=== PATIENT | male | born 1970 | race Caucasian/White ===

== ENCOUNTER 2018-06-21 07:39 | Emergency (ER) | payer MEDICAID, SELFPAY ==
[2018-06-21 07:48] VITALS: BP 156/92; PULSE 74; RESP 15; TEMP 36.4; O2SAT 98
[2018-06-21] MEDS: Ondansetron O.D.T. 4 MG TABEF PO (08:12)
[2018-06-21 08:30] LABS: Abs Immature Grans 0.04 k/cumm (0.0-0.09); Absolute Basophil Count 0.04 k/cumm (0.0-0.2); Absolute Eosinophil Count 0.22 k/cumm (0.0-0.7); Absolute Monocyte Count 0.61 k/cumm (0.11-0.7); Absolute Neutrophil Count 8.88 k/cumm (1.2-6.7); Basophils % 0.3; Eosinophils % 1.8; HCT 44.1 % (40.0-50.0); HGB 15.1 g/dL (13.5-17.5); Immature Grans % 0.3; Lymphocytes % 18.4; Mean Corp. HGB Concentration 34.2 g/dL (32.0-36.0); Mean Corpuscular Hemoglobin 31.9 pg (27.0-33.0); Mean Platelet Volume 9.8 fL (8.0-11.0); Monocytes % 5.1; Neutrophils % 74.1; Platelet Count 264 x1000/uL (130-400); RBC 4.74 m/cumm (4.50-6.00); RBC Distribution Width 12.9 % (11.8-14.1); White Blood Cell Count 11.98 k/cumm (4.4-10.8)
--- NOTE | 2018-06-21 08:31 | W.ED.GENAD ---
Discharge Plan Disposition Patient Disposition: HOME Discharge Details Chief Complaint: Nausea/Vomit/Diar Clinical Impression: Nausea and vomiting Primary Care Provider: [place],Local ED Provider: Ole Ibarra Home Meds and New Rx's Prescriptions: New ondansetron 4 mg tablet,disintegrating 4 mg PO BID PRN PRN (Reason: vomiting) 5 Days Qty: 10 RF: 0 Continued Humulin R Regular U-100 Insuln 100 unit/mL Solution 20 unit SUBCUT BID RF: 0 topiramate [Topamax] 100 mg Tablet 100 mg PO BID RF: 0 duloxetine [Cymbalta] 30 mg Capsule,Delayed Release(Dr/Ec) 30 mg PO DAILY RF: 0 atorvastatin 40 mg Tablet 40 mg PO QPM RF: 0 ProAir HFA 90 mcg/actuation Hfa Aerosol Inhaler 2 puff INHALATION QID PRNRF: 0 Januvia 25 mg Tablet 25 mg PO DAILY Qty: 30 RF: 0 Discharge Instructions Instructions: Acute Nausea and Vomiting (ED) Additional Instructions: Please take your medication as prescribed. Please contact your primary care physician to arrange follow-up. Return to the ER for any worsening or new concerning symptoms. Stand Alone Forms: Work Release Medical Decision Making 8:00 --47-year-old male with history of COPD, insulin-dependent diabetes, here with nausea and vomiting for the past 2 days. No abdominal pain. Afebrile. Abdomen nontender, not rigid, no peritoneal findings. He does seem to have some hepatomegaly. Patient does not consume heavy amounts of alcohol. Kdwbs-my-btsc blood sugar elevated at 170. Patient notes he did eat prior to arrival. Plan to check screening labs including CBC, chemistry and LFTs. Patient administered Zofran ODT. --Labs reviewed and nondiagnostic. No anion gap. Care management is seing the patient to help arrange outpatient follow-up. Patient will need follow-up fairly soon for medication prescriptions. I will prescribe his Januvia which he is run out of. HPI General Mode of arrival: ambulatory. Date/Time Provider Initiated Documentation: 06/21/18 08:02. Limitations to Documentation: no limitations. Information obtained by: patient. HPI Narrative: 47-year-old male presents with chief complaint of vomiting. Patient notes nausea and vomiting for the past 2 days. Symptoms are moderate. No modifiers. Positive sick contacts at work. No associated abdominal pain. No chest pain. No fevers. Patient is new to the area and recently moved from [place] - does not yet have a primary care physician. Related Data Home Medications Medication Instructions Recorded Confirmed Humulin R Regular U-100 Insuln 20 unit SUBCUT BID 06/21/18 06/21/18 Januvia 25 mg PO DAILY #30 tab 06/21/18 ProAir HFA 2 puff INHALATION QID PRN 06/21/18 06/21/18 atorvastatin 40 mg PO QPM 06/21/18 06/21/18 duloxetine [Cymbalta] 30 mg PO DAILY 06/21/18 06/21/18 ondansetron 4 mg PO BID PRN PRN 5 Days #10 tab 06/21/18 topiramate [Topamax] 100 mg PO BID 06/21/18 06/21/18 Previous Rx's Medication Instructions Recorded Januvia 25 mg PO DAILY #30 tab 06/21/18 ondansetron 4 mg PO BID PRN PRN 5 Days #10 tab 06/21/18 Allergies Allergy/AdvReac Type Severity Reaction Status Date / Time nickel Allergy Skin Rash Unverified 06/21/18 07:44 garlic AdvReac Intermediate Nausea Unverified 06/21/18 07:44 General Stated Complaint: Nausea/Vomit/Diar ELISA: 3 Review of Systems Review of Systems All systems reviewed & are unremarkable except as noted in HPI and below Constitutional Denies fever(s) Gastrointestinal Denies melena, Denies hematochezia, Denies diarrhea, Reports nausea, Reports vomiting and Denies hematemesis [facility] Medical History COPD (chronic obstructive pulmonary disease) (Chronic) IDDM (insulin dependent diabetes mellitus) (Chronic) Social History Smoking/Tobacco Use Status: Current every day Exam Const General: cooperative and no acute distress HENMT Head: normocephalic and atraumatic Mouth: moist mucous membranes Eyes Conjunctivae: normal conjunctivae Sclera: normal sclerae EOM: EOM intact bilaterally Neck Neck: trachea midline and supple Resp Auscultation: clear to auscultation bilaterally, no rales, no rhonchi and no wheezes Cardio Jugular venous pressure: no JVD Rate: regular rate and not tachycardic Rhythm: regular rhythm GI Palpation: soft, not firm, no guarding, hepatomegaly, no masses, no pulsatile masses, not rigid, nontender and No ascites Auscultation: normal bowel sounds Skin General skin exam: no rashes or lesions noted Neuro General: alert, awake, oriented x3 and tone normal Extrem General: no edema Psych Appearance: grossly normal Mental Status: mental status grossly normal Speech and Movement: speech and movement normal Course Vital Signs Temperature 36.4 C L 06/21/18 07:48 Pulse 74 06/21/18 07:48 Respiratory Rate 15 06/21/18 07:48 Blood Pressure 156/92 H 06/21/18 07:48 Pulse Oximetry 98 06/21/18 07:48 Temperature 36.4 C L 06/21/18 07:48 Temperature Source Temporal Artery Scan 06/21/18 07:48 Pulse 74 06/21/18 07:48 Respiratory Rate 15 06/21/18 07:48 Respiratory Effort Non-Labored 06/21/18 08:01 Blood Pressure 156/92 H 06/21/18 07:48 Blood Pressure Position Sitting 06/21/18 07:48 Pulse Oximetry 98 06/21/18 07:48 Oxygen Delivery Method Room Air 06/21/18 07:48 Oxygen Flow Rate 0 06/21/18 07:48 Lab/Test Results Lab/Test Results: Laboratory Tests Range/Units 06/21/18 08:22 WBC (4.4-10.8) k/cumm 11.98 H RBC (4.50-6.00) m/cumm 4.74 Hgb (13.5-17.5) g/dL 15.1 Hct (40.0-50.0) % 44.1 MCV (80-95) fL 93.0 MCH (27.0-33.0) pg 31.9 MCHC (32.0-36.0) g/dL 34.2 RDW (11.8-14.1) % 12.9 Plt Count (130-400) x1000/uL 264 MPV (8.0-11.0) fL 9.8 Immature Gran % 0.3 Neutrophils % 74.1 Lymphocytes % 18.4 Monocytes % 5.1 Eosinophils % 1.8 Basophils % 0.3 Absolute Neutrophils (1.2-6.7) k/cumm 8.88 H Absolute Lymphocytes (1.2-3.4) k/cumm 2.20 Absolute Monocytes (0.11-0.7) k/cumm 0.61 Absolute Eosinophils (0.0-0.7) k/cumm 0.22 Absolute Basophils (0.0-0.2) k/cumm 0.04
[2018-06-21 08:38] LABS: ALT 16 U/L (12-78); AST 9 U/L (15-37); Albumin 3.5 g/dL (3.4-5.0); Alkaline Phosphatase 69 U/L (46-116); BUN 19 mg/dL (7-18); Bilirubin, Total 0.5 mg/dL (0.2-1.0); CREATININE 1.08 mg/dL (0.70-1.30); Calcium 8.7 mg/dL (8.5-10.1); Chloride 108 mmol/L (98-107); Glucose 171 mg/dL (70-100); Potassium 4.2 mmol/L (3.5-5.1); Sodium 141 mmol/L (136-145); Total Protein 7.1 g/dL (6.4-8.2)
[2018-06-21 09:36] VITALS: BP 127/79; PULSE 60; RESP 16; TEMP 36.7; O2SAT 98
--- NOTE | 2018-06-21 09:49 | PDOC.ERCMPRO ---
Care Management Progress Note 06/21-Dr. Janine Ibarra requested assistance with a PCP ([facility], Dr. Helm primary health organisation manager) in one week for medication assistance. Met with patient. Patient states he does not have insurance and can not pay for scripts. He also recently located here from [place]. He states he received a letter from [employer] approving his disability back to 2014 but has not received any income from this. Beverly states he works a little. His disability is for diabetes per patient. Patient states he is out of [employer], and almost out of [employer] and [employer]. Discussed [facility] with Beverly and gave him brochure. Beverly states he will go right over to [facility] to discuss insurance as soon as he is done in the ED. Called Shanelle Funez at [facility] and updates on above. Beverly has my contact information if further assistance is needed. Referral faxed to [facility] this am.
--- NOTE | 2018-06-21 09:52 | CMPROGNOTE_ITS ---
Care Management Progress Note 06/21-Dr. Janine Ibarra requested assistance with a PCP (patient new to [facility], Dr. Helm occupational health coordinator) in one week for medication assistance. Met with patient. Patient states he does not have insurance and can not pay for scripts. He also recently located here from [place]. He states he received a letter from [employer] approving his disability back to 2014 but has not received any income from this. Beverly states he works a little. His disability is for diabetes per patient. Patient states he is out of [employer], and almost out of [employer] and [employer]. Discussed [facility] with Beverly and gave him brochure. Beverly states he will go right over to [facility] to discuss insurance as soon as he is done in the ED. Called Shanelle Funez at [facility] and updates on above. Beverly has my contact information if further assistance is needed. Referral faxed to [facility] this am.
== END 2018-06-22 09:49 | disposition home or self-care (01) ==
PROVIDERS: Emergency Provider Student in an Organized Health Care Education/Training Program
DX: R11.0 Nausea (principal); J44.9 Chronic obstructive pulmonary disease, unspecified; E11.9 Type 2 diabetes mellitus without complications; Z79.4 Long term (current) use of insulin; F17.210 Nicotine dependence, cigarettes, uncomplicated
CPT/HCPCS: 36415; 36416; 80053; 82962; 99283; 85025

== ENCOUNTER 2018-07-09 23:00 | Inpatient (IN) | payer MEDICARE, MEDICAID, SELFPAY ==
--- NOTE | 2018-07-09 00:49 | DI.CT_ITS ---
SYMPTOM/DIAGNOSIS: HEADACHE, UNRESPONSIVE EVENT NONCONTRAST HEAD CT: No intracranial hemorrhage or skull fracture is seen The ventricles are normal in size. There is mucous retention in the right maxillary as well as sphenoid sinus. IMPRESSION: Sinus disease. No acute abnormality.
[2018-07-09 23:21] VITALS: BP 133/82; PULSE 82; RESP 12; TEMP 36.6; O2SAT 96
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
--- NOTE | 2018-07-09 23:40 | DI.RAD_ITS ---
SYMPTOM/DIAGNOSIS: SOB PA AND LATERAL CHEST: There are no prior comparison exams. The heart size is normal. The lungs are clear. No infiltrate, effusion or pneumothorax is seen. IMPRESSION: Negative chest x-ray.
[2018-07-09] MEDS: Lactated Ringers 1,000 ML 1000 ML IV (23:55)
[2018-07-09 23:57] LABS: Abs Immature Grans 0.12 k/cumm (0.0-0.09); Absolute Basophil Count 0.03 k/cumm (0.0-0.2); Absolute Eosinophil Count 0.29 k/cumm (0.0-0.7); Absolute Lymphocyte Count 3.14 k/cumm (1.2-3.4); Absolute Monocyte Count 0.83 k/cumm (0.11-0.7); Absolute Neutrophil Count 11.58 k/cumm (1.2-6.7); Basophils % 0.2; Eosinophils % 1.8; HCT 48.3 % (40.0-50.0); HGB 16.6 g/dL (13.5-17.5); Immature Grans % 0.8; Lymphocytes % 19.6; Mean Corp. HGB Concentration 34.4 g/dL (32.0-36.0); Mean Corpuscular Hemoglobin 31.7 pg (27.0-33.0); Mean Corpuscular Volume 92.2 fL (80-95); Mean Platelet Volume 9.9 fL (8.0-11.0); Monocytes % 5.2; Neutrophils % 72.4; Platelet Count 256 x1000/uL (130-400); RBC 5.24 m/cumm (4.50-6.00); RBC Distribution Width 13.2 % (11.8-14.1)
[2018-07-10] VITALS (8 sets, daily range): BP systolic 108–134; BP diastolic 60–88; PULSE 65–89; RESP 10–20; TEMP 36.4–36.8; O2SAT 96–98
[2018-07-10 00:15] LABS: ALT 21 U/L (12-78); AST 10 U/L (15-37); Albumin 3.6 g/dL (3.4-5.0); Alkaline Phosphatase 91 U/L (46-116); Anion Gap 11.5 mmol/L (3-11); BUN 18 mg/dL (7-18); Bilirubin, Total 0.3 mg/dL (0.2-1.0); CO2 25.5 mmol/L (21.0-32.0); CREATININE 1.57 mg/dL (0.70-1.30); Chloride 103 mmol/L (98-107); Estimated GFR 48.01 (mL/min/1.73m2); Glucose 357 mg/dL (70-100); Magnesium 1.8 mg/dL (1.8-2.4); Potassium 4.1 mmol/L (3.5-5.1); Sodium 140 mmol/L (136-145); Total Protein 7.8 g/dL (6.4-8.2)
[2018-07-10 00:16] LABS: ETHANOL BLOOD < 3.0 mg/dL (<3); Troponin I < 0.02 ng/mL (0.00-0.06)
[2018-07-10] MEDS: Acetaminophen 500 MG TAB 1000 MG PO ×2 (00:23→15:39)
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
--- NOTE | 2018-07-10 00:46 | DI.VRAD_ITS ---
EXAM: XR Chest, 2 Views EXAM DATE/TIME: 07/09/2018 11:42 PM CLINICAL HISTORY: 47 years old, male; Signs and symptoms; Shortness of breath TECHNIQUE: XR of the chest, 2 views. COMPARISON: No relevant prior studies available. FINDINGS: Lungs: Unremarkable. No consolidation. Pleural space: Unremarkable. No evidence of pneumothorax. Heart/Mediastinum: Unremarkable. Heart size within normal limits for technique. Bones/joints: Unremarkable. IMPRESSION: No acute findings. Dictated and Authenticated by: Alex Gauthier MD. Ordering:YARELY Valadez MD
--- NOTE | 2018-07-10 01:02 | DI.VRAD_ITS ---
EXAM: CT Head Without Contrast EXAM DATE/TIME: 07/09/2018 11:42 PM CLINICAL HISTORY: 47 years old, male; Signs and symptoms; Other: Headache TECHNIQUE: Axial computed tomography images of the head/brain without contrast. All CT scans at this facility use at least one of these dose optimization techniques: automated exposure control; mA and/or kV adjustment per patient size (includes targeted exams where dose is matched to clinical indication); or iterative reconstruction. Coronal and sagittal reformatted images were created and reviewed. COMPARISON: No relevant prior studies available. FINDINGS: Brain: Typical for age. No hemorrhage. No evidence of acute infarct. No mass. Ventricles: No ventriculomegaly. Bones/joints: Unremarkable. Sinuses: There is some mucosal thickening in maxillary, ethmoid and sphenoid sinuses. Mastoid air cells: Unremarkable. Soft tissues: Unremarkable. IMPRESSION: No acute intracranial findings. Chronic sinusitis changes. Dictated and Authenticated by: Alex Gauthier MD. Ordering:YARELY Valadez MD
[2018-07-10 02:02] LABS: *AMPHETAMINES SCREEN URINE Negative (Negative); *BARBITURATES SCREEN URINE Negative (Negative); *BENZODIAZEPINES SCREEN URINE Negative (Negative); Cannabinoids THC Negative (Negative); Cocaine Screen,Urine Negative (Negative); METHADONE URINE SCREEN Negative (Negative); OPIATES URINE SCREEN Negative (Negative)
[2018-07-10 02:04] LABS: Bilirubin Negative (Negative); Blood Negative (Negative); Clarity Clear; Glucose 500 mg/dL (Negative); Ketones Negative (Negative); Leukocyte Esterase Negative (Negative); Nitrite Negative (Negative); Specific Gravity >= 1.030 (1.005-1.025)
[2018-07-10 02:09] LABS: Tricyclic Antidepressants Negative (Negative)
[2018-07-10 02:20] LABS: Bacteria Few HPF (Negative); Crystals Negative HPF (Negative); Epithelial Cells Moderate HPF (Negative); Mucus Heavy (Negative); RBC 0-2 (0-2); WBC 0-2 HPF (0-5)
[2018-07-10 02:21] LABS: C & S Indicated? No; Casts 10-20 Hyaline LPF (Negative)
--- NOTE | 2018-07-10 03:59 | NUR.NOTE ---
Nursing Note: 07/10/18 0150H. Patient admitted from the ER per stretcher accompanied by . Alert and oriented x3. Ambulatory. With complaints or passing out as reason for ER visit. Transferred to bed. VS taken
[2018-07-10] MEDS: DULoxetine 30 MG CAP PO (08:42)
[2018-07-10] MEDS: Topiramate 100 MG TAB PO ×2 (08:42→21:36)
[2018-07-10] MEDS: Insulin Aspart 300 UNITS/3 ML PEN SC ×3 (08:43→17:04)
[2018-07-10] MEDS: Normal Saline Flush 10 ML SYR IVP (08:43)
[2018-07-10 09:43] LABS: Abs Immature Grans 0.07 k/cumm (0.0-0.09); Absolute Basophil Count 0.04 k/cumm (0.0-0.2); Absolute Monocyte Count 0.85 k/cumm (0.11-0.7); Absolute Neutrophil Count 8.77 k/cumm (1.2-6.7); Basophils % 0.3; Eosinophils % 2.4; HCT 42.6 % (40.0-50.0); HGB 14.7 g/dL (13.5-17.5); Immature Grans % 0.6; Mean Corp. HGB Concentration 34.5 g/dL (32.0-36.0); Mean Corpuscular Hemoglobin 32.2 pg (27.0-33.0); Mean Corpuscular Volume 93.2 fL (80-95); Mean Platelet Volume 9.8 fL (8.0-11.0); Monocytes % 6.9; Neutrophils % 70.8; Platelet Count 223 x1000/uL (130-400); RBC 4.57 m/cumm (4.50-6.00); White Blood Cell Count 12.39 k/cumm (4.4-10.8)
[2018-07-10 09:45] LABS: Absolute Lymphocyte Count 2.35 k/cumm (1.2-3.4)
[2018-07-10 09:50] LABS: Anion Gap 9.5 mmol/L (3-11); BUN 24 mg/dL (7-18); CO2 24.5 mmol/L (21.0-32.0); CREATININE 1.23 mg/dL (0.70-1.30); Calcium 8.8 mg/dL (8.5-10.1); Chloride 105 mmol/L (98-107); Glucose 282 mg/dL (70-100); Potassium 4.3 mmol/L (3.5-5.1); Sodium 139 mmol/L (136-145)
--- NOTE | 2018-07-10 13:08 | W.INDIABCONS ---
Date of service: 07/10/18 Time of Service: 13:08 Diabetes Inpatient Consult DESCRIPTION/ASSESSMENT: Appreciate diabetes consult for Mr. Abbott who is hospitalized s/p question of coma. Blood titify871 at admission, 236 fasting and now 179 pre-lunch. He had 4 units Aspart and 56grams carbohydrate at breakfast. I do not see that he had basal insulin last night. CUrrent orders 20u Lantus and insulin correction at the resistant level. He reports getting 20u regular with breakfast, monitors his blood sugar before lunch which he states us -795vh/dl, has a snack for lunch based on blood sugar, and takes 20u before supper every night. He is currently homeless and finds the regimen a challenge given his limited hours with a place to be. Mr. Abbott reports he has had diabetes self management in the past and is able to switch out carbohydrates when needed. He further states he would be open to a new diabetes regimen that is more predictable and less variable. He is seeking housing through [facility], [facility] and [employer] is advocating for him. He states he is applying for Medicaid. INTERVENTION: No intervention suggested at this time. Will watch to see how he responds to the currently ordered insulin regimen. He may benefit from insulin for food including
[2018-07-10 14:02] LABS: Hemoglobin A1C 7.4 % (4.5-6.2)
--- NOTE | 2018-07-10 18:23 | PDOC.CMIN ---
- If Service Date Differs Date of service: 07/10/18 Time of Service: 18:23 Care Management Initial Assess REASON FOR HOSPITALIZATION:: Loss of Consciousness PAST MEDICAL HISTORY/PAST SURGICAL HISTORY:: Diabetes, neuropathy, depression, COPD, osteoarthritis, chronic pain, ADHD. PREVIOUS FUNCTIONAL STATUS/SOCIAL/FAMILY SUPPORTS:: Beverly states that he moved here from [place] with his Angela. He reports he is disabled, CM reviewed disability paperwork and documentation. His disability is related to physical health including uncontrolled diabetes, ADHD, and depression. He is currently homeless living with his spouse at the homeless assisted, and [place] [facility] CURRENT FUNCTIONAL STATUS:: Beverly is sitting up in bed tolerating a full lunch during CM visit. He makes good eye contact, he is able to verbalize events that occurred prior to admission. He states he has been feeling stressed, and would not be surprised if the event was related to increased stress. He remembers popping his neck and then waking up to arriving at the ED. He states he has been working with [employer] and his Medicaid should be active in his new primary care is at [facility] internal medicine. He has been working with housing supports including [employer], and [employer] He states that economic services has been paying for the motel and that he has a medical exception. He reports arriving economic services too late on Thursday to have the motel approved for the weekend. His plan was to sleep in his car with his significant other or at the homeless assisted. He states he did contact 211 for emergency vouch and they referred him to the [facility] assisted. ADVANCE DIRECTIVES:: None on file Has patient been provided with information about the portal?: Yes Did the patient sign up for the portal?: No CODE STATUS:: Full Code INSURANCE COVERAGE / FINANCIAL ISSUES:: Medicaid pending CURRENT HOME/COMMUNITY SERVICES/EQUIPMENT:: [employer], [employer], [employer], and [employer]. PRIMARY CARE PHYSICIAN:: Kroin Talavera NP POTENTIAL DISCHARGE NEEDS:: Follow-up appointment scheduled with primary care provider prior to discharge. PATIENT/FAMILY EDUCATION NEEDS:: Discharge education, limitations, follow-up plan of care, ask me 3 and self-management discussion ANTICIPATED BARRIERS TO DISCHARGE:: Availability of services including carotid ultrasound and neurology over the weekend. Homelessness, access to medications, access to treatment. TRANSPORTATION:: Via private car with spouse at time of discharge. PLAN:: Beverly remains in observation status he will transition to inpatient per provider. He will need a consult with neurology, and a carotid ultrasound which is not available over the weekend. Anticipate discharge with a Zio patch per provider. He will be discharged when medically ready and will continue with psychosocial support in the community for housing resources. Patient and his spouse are familiar with how to apply for services, and how to obtain emergency housing. CM to continue to provide support to patient ongoing discharge planning. CM to follow-up with [facility] on Thursday to verify support services.
--- NOTE | 2018-07-10 18:38 | INITIAL_ITS ---
- If Service Date Differs Date of service: 07/10/18 Time of Service: 18:23 Care Management Initial Assess REASON FOR HOSPITALIZATION:: Loss of Consciousness PAST MEDICAL HISTORY/PAST SURGICAL HISTORY:: Diabetes, neuropathy, depression, COPD, osteoarthritis, chronic pain, ADHD. PREVIOUS FUNCTIONAL STATUS/SOCIAL/FAMILY SUPPORTS:: Beverly states that he moved here from [place] with his Angela. He reports he is disabled, CM revi ewed disability paperwork and documentation. His disability is related to physical health including uncontrolled diabetes, ADHD, and depression. He is currently homeless living with his spouse at the homeless detention, and motel in [facility]. CURRENT FUNCTIONAL STATUS:: Beverly is sitting up in bed tolerating a full lunch during CM visit. He makes good eye contact, he is able to verbalize events that occurred prior to admission. He states he has been feeling stressed, and would not be surprised if the event was related to increased stress. He remembers popping his neck and then waking up to arriving at the ED. He states he has been working with [employer] and his Medicaid should be active in his new primary care is at [facility] internal medicine. He has been working with housing supports including [employer], [employer], and [employer] He states that economic services has been paying for the motel and that he has a medical exception. He reports arriving economic services too late on Thursday to have the motel approved for the weekend. His plan was to sleep in his car with his significant other or at the homeless detention. He states he did contact [employer] for emergency vouch and they referred him to the homeless detention. ADVANCE DIRECTIVES:: None on file Has patient been provided with information about the portal?: Yes Did the patient sign up for the portal?: No CODE STATUS:: Full Code INSURANCE COVERAGE / FINANCIAL ISSUES:: Medicaid pending CURRENT HOME/COMMUNITY SERVICES/EQUIPMENT:: [email or web address], [employer], [employer], and [employer]. PRIMARY CARE PHYSICIAN:: Korin Talavera NP POTENTIAL DISCHARGE NEEDS:: Follow-up appointment scheduled with primary care provider prior to discharge. PATIENT/FAMILY EDUCATION NEEDS:: Discharge education, limitations, follow-up plan of care, ask me 3 and self-management discussion ANTICIPATED BARRIERS TO DISCHARGE:: Availability of services including carotid ultrasound and neurology over the weekend. Homelessness, access to medications, access to treatment. TRANSPORTATION:: Via private car with spouse at time of discharge. PLAN:: Beverly remains in observation status he will transition to inpatient per provider. He will need a consult with neurology, and a carotid ultrasound w [facility] is not available over the weekend. Anticipate discharge with a Zio patch per provider. He will be discharged when medically ready and will continue with psychosocial support in the community for housing resources. Patient and his spouse are familiar with how to apply for services, and how to obtain emergency housing. CM to continue to provide support to patient ongoing discharge planning. CM to follow-up with [facility] on Thursday to verify support services.
[2018-07-10] MEDS: Atorvastatin 40 MG TAB PO (21:36)
[2018-07-10] MEDS: Nicotine 21 MG/24 HR PATCH TD (21:36)
[2018-07-10] MEDS: Insulin Glargine 300 UNITS/3 ML PEN 10 UNITS SC (22:02)
[2018-07-10] MEDS: Patient's Own Medication 1 EACH MISC 2 EACH PO (22:28)
[2018-07-11] VITALS (8 sets, daily range): BP systolic 117–155; BP diastolic 72–106; PULSE 62–74; RESP 18–19; TEMP 36.1–36.9; O2SAT 96–99
[2018-07-11] MEDS: Nicotine 21 MG/24 HR PATCH TD (08:12)
[2018-07-11] MEDS: DULoxetine 30 MG CAP PO (08:12)
[2018-07-11] MEDS: Topiramate 100 MG TAB PO ×2 (08:12→19:30)
[2018-07-11] MEDS: Normal Saline Flush 10 ML SYR IVP (08:13)
[2018-07-11] MEDS: Insulin Aspart 300 UNITS/3 ML PEN SC ×3 (08:14→17:06)
[2018-07-11] MEDS: Patient's Own Medication 1 EACH MISC 2 EACH PO (08:17)
--- NOTE | 2018-07-11 14:31 | PDOC.CMPRO ---
- If Service Date Differs Date of service: 07/11/18 Time of Service: 14:32 Care Management Progress Note S/O: Beverly remains acute at this time. He has not had anymore episodes as described prior to admission. His blood sugar have been controlled his insulin is being adjusted. Awaiting Neuro consult and carotid u/s and anticipate discharge on Thursday and follow up with community resources as prior to admission. A:47 year old male admitted with loss of consciousness reported by significant other. P: Beverly remains in observation status he will transition to inpatient per provider. He will need a consult with neurology, and a carotid ultrasound which is not available over the weekend. Anticipate discharge with a Zio patch per provider. He will be discharged when medically ready and will continue with psychosocial support in the community for housing resources. Patient and his spouse are familiar with how to apply for services, and how to obtain emergency housing. CM to continue to provide support to patient ongoing discharge planning. CM to follow-up with [facility] on Thursday to verify support services.
--- NOTE | 2018-07-11 19:22 | PGE_ITS ---
Date of Service Date of service: 07/11/18 Time of Service: 19:20 Assessment and Plan (1) Loss of consciousness: Current visit: No Status: Acute Episode of apparent transient loss of consciousness, unclear etiology, with potential for syncope versus possible seizure activity. No evidence of hypoglycemia, but with mild leukocytosis that improved without intervention. Check MRI, ECHO, EEG, and carotid ultrasound, and consider neurology consultation pending results. (2) GERD (gastroesophageal reflux disease): Current visit: No Status: Chronic Continue PPI therapy. 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 (4) T2DM (type 2 diabetes mellitus): Current visit: No Status: Chronic Initiate Lantus with sliding scale coverage, and monitor blood sugars. (5) COPD (chronic obstructive pulmonary disease): Current visit: No Status: Chronic Appears quiescent. Duonebs prn. (6) DVT prophylaxis: Current visit: Yes Status: Acute SC Enoxaparin. Subjective Interval history since last seen: 47-year-old man with a prior history of seizures vs. pseudoseizures, diabetes, and COPD admitted from [facility] Emergency Department with a reported LOC. Mr. Abbott has a prior history of insulin-dependent diabetes mellitus, tobacco abuse, and COPD. He has a prior known history of Leon's palsy as well as potential diabetic neuropathy versus fibromyalgia per verbal history. He also has noted history of significant depression and anxiety, ADH, and either a seizure disorder that is attributed to a prior TBI vs. pseudo-seizures. He is originally from [place] and is currently homeless. Patient was a passenger in the car with his , and following 'cracking' his own neck he suffered a transient loss of consciousness described by his spouse as his eyes rolled in the back of his head and he passed out. The patient was then driven to the ED, at which time he underwent a fairly unremarkable workup. He was admitted for further evaluation and treatment. However due to lack of available resources of very little testing was done over the weekend. He complains of continued chronic headaches today. No other events reported. He has remained on telemetry without any noted abnormalities. Afebrile. Exam Narrative Exam Narrative: General: Patient appears comfortable, AAOX3, NAD Neck: Supple CV: Regular, nontachycardic, S1S2, No rubs, murmurs, or gallops. Pulmonary: Clear to auscultation bilaterally, no crackles, wheezing, or rhonchi Abdomen: + Bowel Sounds, soft, nontender, nondistended Vascular: No lower extremity edema Neurologic: CN II-XII grossly intact. No focal deficits. Psych: Normal mood and affect. Objective Objective Clinical Data: Vital Signs Temperature 36.1 C L 07/11/18 16:06 Temperature Source Tympanic 07/11/18 16:06 Pulse 74 07/11/18 16:06 Pulse Rhythm Regular 07/11/18 15:55 Respiratory Rate 19 07/11/18 16:06 Respiratory Effort Non-Labored 07/11/18 15:55 Respiratory Depth Normal 07/11/18 15:55 Respiratory Pattern Normal 07/11/18 15:55 Blood Pressure 138/90 07/11/18 16:55 Blood Pressure Position Supine 07/09/18 23:21 Pulse Oximetry 97 07/11/18 16:06 Oxygen Delivery Method Room Air 07/11/18 16:06 Oxygen Flow Rate 0 07/11/18 16:06 Pain Level 8 07/11/18 07:45 Comment 07/09/18 23:21 Intake & Output 07/10/18 07/11/18 07/11/18 23:59 11:59 23:59 Intake Total 450 / 1810 360 / 1080 720 / 1080 Balance 450 / 1810 360 / 1080 720 / 1080 Intake: Oral 450 / 810 360 / 1080 720 / 1080 Other: Comment pt voiding independently in the bathroom pt voiding independently in the bathroom pt voiding independently in the bathroom Stool Size Large Stool Characteristics Soft Formed Brown Voiding Methods Toilet Toilet Toilet Laboratory Results WBC 12.39 k/cumm (4.4-10.8) H 07/10/18 09:31 RBC 4.57 m/cumm (4.50-6.00) 07/10/18 09:31 Hgb 14.7 g/dL (13.5-17.5) 07/10/18 09:31 Hct 42.6 % (40.0-50.0) 07/10/18 09:31 MCV 93.2 fL (80-95) 07/10/18 09:31 MCH 32.2 pg (27.0-33.0) 07/10/18 09:31 MCHC 34.5 g/dL (32.0-36.0) 07/10/18 09:31 RDW 13.0 % (11.8-14.1) 07/10/18 09:31 Plt Count 223 x1000/uL (130-400) 07/10/18 09:31 MPV 9.8 fL (8.0-11.0) 07/10/18 09:31 Immature Gran % 0.6 07/10/18 09:31 Neutrophils % 70.8 07/10/18 09:31 Lymphocytes % 19.0 07/10/18 09:31 Monocytes % 6.9 07/10/18 09:31 Eosinophils % 2.4 07/10/18 09:31 Basophils % 0.3 07/10/18 09:31 Absolute Neutrophils 8.77 k/cumm (1.2-6.7) H 07/10/18 09:31 Absolute Lymphocytes 2.35 k/cumm (1.2-3.4) 07/10/18 09:31 Absolute Monocytes 0.85 k/cumm (0.11-0.7) H 07/10/18 09:31 Absolute Eosinophils 0.30 k/cumm (0.0-0.7) 07/10/18 09:31 Absolute Basophils 0.04 k/cumm (0.0-0.2) 07/10/18 09:31 Sodium 139 mmol/L (136-145) 07/10/18 09:31 Potassium 4.3 mmol/L (3.5-5.1) 07/10/18 09:31 Chloride 105 mmol/L (98-107) 07/10/18 09:31 Carbon Dioxide 24.5 mmol/L (21.0-32.0) 07/10/18 09:31 Anion Gap 9.5 mmol/L (3-11) 07/10/18 09:31 BUN 24 mg/dL (7-18) H 07/10/18 09:31 Creatinine 1.23 mg/dL (0.70-1.30) 07/10/18 09:31 Estimated GFR/1.73 m2 >= 60.00 (mL/min/1.73m2) 07/10/18 09:31 Glucose 282 mg/dL (70-100) H 07/10/18 09:31 Hemoglobin A1c 7.4 % (4.5-6.2) H 07/10/18 09:31 Calcium 8.8 mg/dL (8.5-10.1) 07/10/18 09:31 Magnesium 1.8 mg/dL (1.8-2.4) 07/09/18 23:42 Total Bilirubin 0.3 mg/dL (0.2-1.0) 07/09/18 23:42 AST 10 U/L (15-37) L 07/09/18 23:42 ALT 21 U/L (12-78) 07/09/18 23:42 Alkaline Phosphatase 91 U/L (46-116) 07/09/18 23:42 Troponin I < 0.02 ng/mL (0.00-0.06) 07/09/18 23:42 Total Protein 7.8 g/dL (6.4-8.2) 07/09/18 23:42 Albumin 3.6 g/dL (3.4-5.0) 07/09/18 23:42 Urine Color Yellow (Yellow) 07/10/18 01:45 Urine Clarity Clear 07/10/18 01:45 Urine pH 6.0 (5-8) 07/10/18 01:45 Ur Specific Falls >= 1.030 (1.005-1.025) H 07/10/18 01:45 Urine Protein >=300 mg/dL (Negative) H 07/10/18 01:45 Urine Ketones Negative mg/dL (Negative) 07/10/18 01:45 Urine Blood Negative (Negative) 07/10/18 01:45 Urine Nitrite Negative (Negative) 07/10/18 01:45 Urine Bilirubin Negative (Negative) 07/10/18 01:45 Urine Urobilinogen 1.0 EU/dL (Up TO 0.2) H 07/10/18 01:45 Ur Leukocyte Esterase Negative (Negative) 07/10/18 01:45 Urine RBC 0-2 (0-2) 07/10/18 01:45 Urine WBC 0-2 HPF (0-5) 07/10/18 01:45 Ur Epithelial Cells Moderate HPF (Negative) 07/10/18 01:45 Urine Crystals Negative HPF (Negative) 07/10/18 01:45 Urine Bacteria Few HPF (Negative) 07/10/18 01:45 Urine Casts 10-20 hyaline LPF (Negative) 07/10/18 01:45 Urine Mucus Heavy (Negative) 07/10/18 01:45 Ur Culture Indicated? No 07/10/18 01:45 Urine Glucose 500 mg/dL (Negative) H 07/10/18 01:45 Urine Opiates Screen Negative (Negative) 07/10/18 01:45 Urine Methadone Screen Negative (Negative) 07/10/18 01:45 Ur Barbiturates Screen Negative (Negative) 07/10/18 01:45 Ur Tricyclics Screen Negative (Negative) 07/10/18 01:45 Ur Amphetamines Screen Negative (Negative) 07/10/18 01:45 U Benzodiazepines Scrn Negative (Negative) 07/10/18 01:45 Urine Cocaine Screen Negative (Negative) 07/10/18 01:45 Ur THC Screen Negative (Negative) 07/10/18 01:45 Ethyl Alcohol < 3.0 mg/dL (<3) 07/09/18 23:42
[2018-07-11] MEDS: Atorvastatin 40 MG TAB PO (19:30)
[2018-07-11] MEDS: Ibuprofen 600 MG TAB PO (20:09)
[2018-07-11] MEDS: Insulin Glargine 300 UNITS/3 ML PEN 10 UNITS SC (21:37)
[2018-07-12 07:00] VITALS: PULSE 65
--- NOTE | 2018-07-12 07:18 | DI.US_ITS ---
SYMPTOM/DIAGNOSIS: SYNCOPE CAROTID ULTRASOUND: No significant plaque is visible. The velocity measurements obtained are within the normal range. Vertebral artery shows antegrade flow. IMPRESSION: No evidence of significant plaque or significant internal carotid artery stenosis.
[2018-07-12 07:40] VITALS: BP 122/83; PULSE 81; RESP 22; TEMP 35.7; O2SAT 98
[2018-07-12 08:06] LABS: Platelet Count 250 x1000/uL (130-400)
[2018-07-12] MEDS: Nicotine 21 MG/24 HR PATCH TD (08:13)
[2018-07-12] MEDS: Enoxaparin 40 MG/0.4 ML SYR SC (08:14)
[2018-07-12] MEDS: Normal Saline Flush 10 ML SYR IVP (08:15)
[2018-07-12] MEDS: Pantoprazole 40 MG TABCR PO (08:16)
[2018-07-12] MEDS: Ibuprofen 600 MG TAB PO ×3 (08:16→20:14)
[2018-07-12] MEDS: Topiramate 100 MG TAB PO ×2 (08:16→20:14)
[2018-07-12] MEDS: DULoxetine 30 MG CAP PO (08:16)
[2018-07-12] MEDS: Insulin Aspart 300 UNITS/3 ML PEN SC ×3 (08:20→17:00)
--- NOTE | 2018-07-12 13:46 | DI.MRI_ITS ---
SYMPTOM/DIAGNOSIS: LOC, ? SEIZURE, ? SYNCOPE BRAIN MRI: T 2 sagittal, T 1, T 2, FLAIR, gradient echo and diffusion axial and T 2 coronal sequences were performed. No intracranial hemorrhage, mass or infarct is seen. The ventricles are normal in size. The vascular flow voids appear intact. The temporal lobes have a symmetric appearance. There are no areas of restricted diffusion. There is mucus retention in the right maxillary sinus and mucosal thickening of the ethmoid and sphenoid sinuses. The orbits are unremarkable. IMPRESSION: Chronic sinus disease. No acute abnormality.
[2018-07-12 15:08] VITALS: PULSE 69
--- NOTE | 2018-07-12 15:16 | MERGE_ITS ---
*[facility]* *[facility]* [address] [place] [address] Date of study: 07/12/2018 Transthoracic Echocardiography M-mode, complete 2D, complete spectral Doppler, and color Doppler *STUDY CONCLUSIONS* Summary: 1. Left ventricle: The cavity size was normal. Systolic function was normal. The estimated ejection fraction was 60-65%. Diastolic parameters were normal. There was no evidence of elevated ventricular filling pressure by Doppler parameters. 2. Mitral valve: There was mild regurgitation. 3. Right ventricle: The cavity size was normal. Wall thickness was normal. Systolic function was normal. 4. Atrial septum: No defect or patent foramen ovale was identified. 5. Pulmonary arteries: Pulmonary systolic pressure was in the range of 20mm Hg to 30mm Hg. 6. Inferior vena cava: The vessel was patent and normal in size. The respirophasic diameter changes were in the normal range (greater than or equal to 50%), consistent with normal central venous pressure. *PATIENT PRESENTATION* Height: 182.9cm ((72in) ) S/D Pressure: 122 / 83 Weight: 125.2kg ((275.4lb) ) BSA: 2.57m^2 Test start time: 03:20 PM. Test stop time: 04:00 PM. PERFORMING Unknown ORDERING Ernesto Michael REFERRING Ernesto Michael PERFORMING [facility] [employer] MANAGER RT Douglas (R)(CT), BARBIE CONSULTING No, Local *PROCEDURE DATA* Procedure information: The patient was identified by two identifiers. This study was interpreted by [facility]. Pertinent images and digital data are archived for permanent storage and are available for subsequent review. No prior study was available for comparison. Study status: Routine. Transthoracic echocardiography. M-mode, complete 2D, complete spectral Doppler, and color Doppler. A Transthoracic Echocardiogram was performed. Scanning was performed from the parasternal, apical, subcostal, and suprasternal notch acoustic windows. Images were obtained using an [id number] cardiac ultrasound machine. Image quality was adequate. Study completion: The patient tolerated the procedure well. History: PMH: LOC. *CARDIAC ANATOMY* Left ventricle: The cavity size was normal. Systolic function was normal. The estimated ejection fraction was 60-65%. The tissue Doppler parameters were normal. Diastolic parameters were normal. There was no evidence of elevated ventricular filling pressure by Doppler parameters. Aortic valve: Trileaflet. Doppler: There was no stenosis. There was no regurgitation. VTI ratio of LVOT to aortic valve: 0.8. Valve area (VTI): 2.7cm^2. Indexed valve area (VTI): 1cm^2/m^2. Peak velocity ratio of LVOT to aortic valve: 0.75. Valve area (Vmax): 2.5cm^2. Indexed valve area (Vmax): 1cm^2/m^2. Mean velocity ratio of LVOT to aortic valve: 0.78. Valve area (Vmean): 2.6cm^2. Indexed valve area (Vmean): 1cm^2/m^2. Mean gradient (S): 3.9mm Hg. Peak gradient (S): 6mm Hg. Aorta: Aortic root: The aortic root was normal in size. Ascending aorta: The ascending aorta was normal in size. Mitral valve: Doppler: There was no evidence for stenosis. There was mild regurgitation. Valve area by pressure half-time: 2.9cm^2. Indexed valve area by pressure half-time: 1.1cm^2/m^2. Peak gradient (D): 2.4mm Hg. Left atrium: The atrium was normal in size. Atrial septum: No defect or patent foramen ovale was identified. Right ventricle: The cavity size was normal. Wall thickness was normal. Systolic function was normal. Pulmonic valve: Doppler: There was no evidence for stenosis. There was no significant regurgitation. Peak gradient (S): 4mm Hg. Tricuspid valve: Doppler: There was mild regurgitation. Pulmonary artery: Poorly visualized. Pulmonary systolic pressure was in the range of 20mm Hg to 30mm Hg. Right atrium: The atrium was normal in size. Pericardium: There was no pericardial effusion. Systemic veins: Inferior vena cava: Not well visualized. The vessel was patent and normal in size. The respirophasic diameter changes were in the normal range (greater than or equal to 50%), consistent with normal central venous pressure. Baseline ECG: Normal sinus rhythm. Measurements Left ventricle Value Reference LV ID, ED, PLAX 5.4 cm 3.5 - 6.0 LV ID, ES, PLAX 3.1 cm 2.1 - 4.0 LV PW thickness, ED, PLAX 0.9 cm LV end-diastolic volume, 1-p A2C 92 ml LV ejection fraction, 1-p A2C 64 % LV end-diastolic volume, 1-p A4C 107 ml LV ejection fraction, 1-p A4C 59 % LV e', lateral 0.123 m/sec LV E/e', lateral 6 LV e', medial 0.084 m/sec LV E/e', medial 9 LV e', average 0.103 m/sec LV E/e', average 7 Ventricular septum Value Reference IVS thickness, ED, PLAX 0.7 cm LVOT Value Reference LVOT ID, A-P 2.1 cm LVOT area 3.3 cm^2 LVOT peak velocity, S 0.91 m/sec LVOT mean velocity, S 0.74 m/sec LVOT VTI, S 20.7 cm LVOT peak gradient, S 3.3 mm Hg LVOT mean gradient, S 2.3 mm Hg Stroke volume (SV), LVOT DP 69 ml Stroke index (SV/bsa), LVOT DP 27 ml/m^2 Aortic valve Value Reference Aortic valve peak velocity, S 1.2 m/sec Aortic valve mean velocity, S 0.95 m/sec Aortic valve VTI, S 26.0 cm Aortic mean gradient, S 3.9 mm Hg Aortic peak gradient, S 6 mm Hg VTI ratio, LVOT/AV 0.8 Aortic valve area, VTI 2.7 cm^2 Velocity ratio, peak, LVOT/AV 0.75 Aortic valve area, peak velocity 2.5 cm^2 Velocity ratio, mean, LVOT/AV 0.78 Aortic valve area, mean velocity 2.6 cm^2 Aortic valve area/bsa, mean velocity 1 cm^2/m^2 Aorta Value Reference Aortic root ID, ED 3.4 cm Ascending aorta ID, A-P, S 3.3 cm Left atrium Value Reference LA ID, A-P, ES 3.2 cm LA ID/bsa, A-P 1.2 cm/m^2 <=2.2 LA area, ES, A4C 14.7 cm^2 8.8 - 23.4 LA area, ES, A2C 16 cm^2 LA volume/bsa, ES, 1-p A4C 17 ml/m^2 LA volume, ES, 2-p 41 ml LA volume/bsa, ES, 2-p 16 ml/m^2 LA/aortic root ratio 0.93 Mitral valve Value Reference Mitral E-wave peak velocity 0.77 m/sec Mitral A-wave peak velocity 0.79 m/sec Mitral deceleration time (H) 262 ms 150 - 230 Mitral pressure half-time 76 ms Mitral peak gradient, D 2.4 mm Hg Mitral E/A ratio, peak 0.98 Mitral valve area, PHT, DP 2.9 cm^2 Tricuspid valve Value Reference Tricuspid regurg peak velocity 2.5 m/sec Tricuspid peak RV-RA gradient 24.9 mm Hg Right atrium Value Reference RA area, ES, A4C 14 cm^2 8.3 - 19.5 Pulmonic valve Value Reference Pulmonic peak gradient, S 4 mm Hg Legend: (L) and (H) josé luis values outside specified reference range. I have personally reviewed the images and have reviewed and edited the reported findings. Electronically signed by Blake Juarez MD 07/12/2018 17:08
--- NOTE | 2018-07-12 15:20 | PDOC.CMPRO ---
- If Service Date Differs Date of service: 07/12/18 Time of Service: 15:20 Care Management Progress Note S/O: Beverly is sitting up in bed this morning, pleasant and receptive to discussion. His SO Tia is in the room with him and is pleasant. Beverly to have an MRI, EEG, and Carotid today. No change in DC plan. A:47 year old male admitted with loss of consciousness reported by significant other. P: Anticipate discharge with a Zio patch per provider. He will be discharged when medically ready and will continue with psychosocial support in the community for housing resources. Patient and his spouse are familiar with how to apply for services, and how to obtain emergency housing. CM to continue to provide support to patient ongoing discharge planning. CM to follow-up with community connections on Thursday to verify support services.
[2018-07-12 16:22] VITALS: BP 131/86; PULSE 71; RESP 20; TEMP 36.7; O2SAT 96
--- NOTE | 2018-07-12 17:43 | W.PM.PROGNOT ---
Date of Service Date of service: 07/12/18 Time of Service: 17:43 Assessment and Plan (1) Loss of consciousness: Current visit: No Status: Acute Episode of apparent transient loss of consciousness, unclear etiology, with potential for syncope versus possible seizure activity. No evidence of hypoglycemia, but with mild leukocytosis that improved without intervention. MRI brain negative. Check ECHO and carotid ultrasound results when available, and EEG that is still pending. Consider neurology consultation vs. follow-up pending results. (2) GERD (gastroesophageal reflux disease): Current visit: No Status: Chronic Continue PPI therapy. 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 (4) T2DM (type 2 diabetes mellitus): Current visit: No Status: Chronic Initiate Lantus with sliding scale coverage, and monitor blood sugars. (5) COPD (chronic obstructive pulmonary disease): Current visit: No Status: Chronic Appears quiescent. Duonebs prn. (6) DVT prophylaxis: Current visit: Yes Status: Acute SC Enoxaparin. 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 Mr. Abbott has a prior history of insulin-dependent diabetes mellitus, tobacco abuse, and COPD. He has a prior known history of Leon's palsy as well as potential diabetic neuropathy vs. fibromyalgia per verbal history. He also has noted history of significant depression and anxiety, ADH, and either a seizure disorder that is attributed to a prior TBI vs. pseudo-seizures. He is on insulin for his diabetes, albeit on a short-acting twice daily formulation. He is originally from [place] and is currently homeless. Patient was a passenger in the car with his , and following the act of 'cracking' his own neck he suffered a transient loss of consciousness described by his spouse as his eyes rolled in the back of his head and he passed out. The patient was then driven to the ED, at which time he underwent a fairly unremarkable workup. He was admitted for further evaluation and treatment. However due to lack of available resources of very little testing was done over the weekend. Since that time he has had an MRI of the brain that was unremarkable, as well as an ECHO and carotid ultrasound, not yet reported. He had complained of continued chronic headaches. No other events reported. He has remained on telemetry without any noted abnormalities. Afebrile. Exam Narrative Exam Narrative: General: Patient appears comfortable, AAOX3, NAD Neck: Supple CV: Regular, nontachycardic, S1S2, No rubs, murmurs, or gallops. Pulmonary: Clear to auscultation bilaterally, no crackles, wheezing, or rhonchi Abdomen: + Bowel Sounds, soft, nontender, nondistended Vascular: No lower extremity edema Neurologic: CN II-XII grossly intact. No focal deficits. Psych: Normal mood and affect. Objective Objective Clinical Data: Vital Signs Temperature 36.7 C 07/12/18 16:22 Temperature Source Tympanic 07/12/18 16:22 Pulse 71 07/12/18 16:22 Pulse Rhythm Regular 07/12/18 14:50 Respiratory Rate 20 07/12/18 16:22 Respiratory Effort Non-Labored 07/12/18 14:50 Respiratory Depth Normal 07/12/18 14:50 Respiratory Pattern Normal 07/12/18 14:50 Blood Pressure 131/86 07/12/18 16:22 Blood Pressure Position Supine 07/09/18 23:21 Pulse Oximetry 96 07/12/18 16:22 Oxygen Delivery Method Room Air 07/12/18 16:22 Oxygen Flow Rate 0 07/12/18 16:22 Pain Level 7 07/12/18 08:16 Comment 07/09/18 23:21 Intake & Output 07/11/18 07/12/18 07/12/18 23:59 11:59 23:59 Intake Total 720 / 1080 1690 / 1930 240 / 1930 Balance 720 / 1080 1690 / 1930 240 / 1930 Intake: Oral 720 / 1080 1690 / 1930 240 / 1930 Other: Comment pt voiding independently in the bathroom Voids indep in toilet and flushes. Denies difficulties Stool Size Large Stool Characteristics Formed Brown Voiding Methods Toilet Toilet Laboratory Results WBC 12.39 k/cumm (4.4-10.8) H 07/10/18 09:31 RBC 4.57 m/cumm (4.50-6.00) 07/10/18 09:31 Hgb 14.7 g/dL (13.5-17.5) 07/10/18 09:31 Hct 42.6 % (40.0-50.0) 07/10/18 09:31 MCV 93.2 fL (80-95) 07/10/18 09:31 MCH 32.2 pg (27.0-33.0) 07/10/18 09:31 MCHC 34.5 g/dL (32.0-36.0) 07/10/18 09:31 RDW 13.0 % (11.8-14.1) 07/10/18 09:31 Plt Count 250 x1000/uL (130-400) 07/12/18 07:40 MPV 9.8 fL (8.0-11.0) 07/10/18 09:31 Immature Gran % 0.6 07/10/18 09:31 Neutrophils % 70.8 07/10/18 09:31 Lymphocytes % 19.0 07/10/18 09:31 Monocytes % 6.9 07/10/18 09:31 Eosinophils % 2.4 07/10/18 09:31 Basophils % 0.3 07/10/18 09:31 Absolute Neutrophils 8.77 k/cumm (1.2-6.7) H 07/10/18 09:31 Absolute Lymphocytes 2.35 k/cumm (1.2-3.4) 07/10/18 09:31 Absolute Monocytes 0.85 k/cumm (0.11-0.7) H 07/10/18 09:31 Absolute Eosinophils 0.30 k/cumm (0.0-0.7) 07/10/18 09:31 Absolute Basophils 0.04 k/cumm (0.0-0.2) 07/10/18 09:31 Sodium 139 mmol/L (136-145) 07/10/18 09:31 Potassium 4.3 mmol/L (3.5-5.1) 07/10/18 09:31 Chloride 105 mmol/L (98-107) 07/10/18 09:31 Carbon Dioxide 24.5 mmol/L (21.0-32.0) 07/10/18 09:31 Anion Gap 9.5 mmol/L (3-11) 07/10/18 09:31 BUN 24 mg/dL (7-18) H 07/10/18 09:31 Creatinine 1.23 mg/dL (0.70-1.30) 07/10/18 09:31 Estimated GFR/1.73 m2 >= 60.00 (mL/min/1.73m2) 07/10/18 09:31 Glucose 282 mg/dL (70-100) H 07/10/18 09:31 Hemoglobin A1c 7.4 % (4.5-6.2) H 07/10/18 09:31 Calcium 8.8 mg/dL (8.5-10.1) 07/10/18 09:31 Magnesium 1.8 mg/dL (1.8-2.4) 07/09/18 23:42 Total Bilirubin 0.3 mg/dL (0.2-1.0) 07/09/18 23:42 AST 10 U/L (15-37) L 07/09/18 23:42 ALT 21 U/L (12-78) 07/09/18 23:42 Alkaline Phosphatase 91 U/L (46-116) 07/09/18 23:42 Troponin I < 0.02 ng/mL (0.00-0.06) 07/09/18 23:42 Total Protein 7.8 g/dL (6.4-8.2) 07/09/18 23:42 Albumin 3.6 g/dL (3.4-5.0) 07/09/18 23:42 Urine Color Yellow (Yellow) 07/10/18 01:45 Urine Clarity Clear 07/10/18 01:45 Urine pH 6.0 (5-8) 07/10/18 01:45 Ur Specific [place] >= 1.030 (1.005-1.025) H 07/10/18 01:45 Urine Protein >=300 mg/dL (Negative) H 07/10/18 01:45 Urine Ketones Negative mg/dL (Negative) 07/10/18 01:45 Urine Blood Negative (Negative) 07/10/18 01:45 Urine Nitrite Negative (Negative) 07/10/18 01:45 Urine Bilirubin Negative (Negative) 07/10/18 01:45 Urine Urobilinogen 1.0 EU/dL (Up TO 0.2) H 07/10/18 01:45 Ur Leukocyte Esterase Negative (Negative) 07/10/18 01:45 Urine RBC 0-2 (0-2) 07/10/18 01:45 Urine WBC 0-2 HPF (0-5) 07/10/18 01:45 Ur Epithelial Cells Moderate HPF (Negative) 07/10/18 01:45 Urine Crystals Negative HPF (Negative) 07/10/18 01:45 Urine Bacteria Few HPF (Negative) 07/10/18 01:45 Urine Casts 10-20 hyaline LPF (Negative) 07/10/18 01:45 Urine Mucus Heavy (Negative) 07/10/18 01:45 Ur Culture Indicated? No 07/10/18 01:45 Urine Glucose 500 mg/dL (Negative) H 07/10/18 01:45 Urine Opiates Screen Negative (Negative) 07/10/18 01:45 Urine Methadone Screen Negative (Negative) 07/10/18 01:45 Ur Barbiturates Screen Negative (Negative) 07/10/18 01:45 Ur Tricyclics Screen Negative (Negative) 07/10/18 01:45 Ur Amphetamines Screen Negative (Negative) 07/10/18 01:45 U Benzodiazepines Scrn Negative (Negative) 07/10/18 01:45 Urine Cocaine Screen Negative (Negative) 07/10/18 01:45 Ur THC Screen Negative (Negative) 07/10/18 01:45 Ethyl Alcohol < 3.0 mg/dL (<3) 07/09/18 23:42
[2018-07-12] MEDS: Atorvastatin 40 MG TAB PO (20:15)
[2018-07-12] MEDS: Insulin Glargine 300 UNITS/3 ML PEN 10 UNITS SC (22:17)
[2018-07-12] MEDS: traMADol 50 MG TAB PO (22:17)
[2018-07-13] VITALS (7 sets, daily range): BP systolic 96–117; BP diastolic 58–77; PULSE 68–81; RESP 16–20; TEMP 35.9–36.4; O2SAT 97–98
[2018-07-13] MEDS: Nicotine 21 MG/24 HR PATCH TD (08:26)
[2018-07-13] MEDS: Pantoprazole 40 MG TABCR PO (08:26)
[2018-07-13] MEDS: DULoxetine 30 MG CAP PO (08:26)
[2018-07-13] MEDS: Topiramate 100 MG TAB PO (08:26)
[2018-07-13] MEDS: Ibuprofen 600 MG TAB PO ×2 (08:26→15:14)
[2018-07-13] MEDS: Enoxaparin 40 MG/0.4 ML SYR SC (08:26)
[2018-07-13] MEDS: Insulin Aspart 300 UNITS/3 ML PEN SC ×2 (08:33→12:15)
--- NOTE | 2018-07-13 12:44 | PDOC.EEG ---
EEG: [facility] Department of Neurology INPATIENT EEG REPORT Date of Recording: Interpreting Physician: Dr. Adri Dennis Reason for study: Mr. Abbott is a 47 year-old man admitted after a spell of LOC concerning for syncope vs seizure. He has a history of nocturnal shaking spells. Current Medications: Active Medications Generic Name Dose Route Start Last Admin Trade Name Freq PRN Reason Stop Dose Admin Albuterol Sulfate 2 puff 07/10/18 00:52 Ventolin Hfa IH QID PRN COPD Albuterol/Ipratropium 3 ml 07/12/18 17:42 Duoneb Updraft UPD Q6H PRN PRN Atorvastatin Calcium 40 mg 07/10/18 20:00 07/12/18 20:15 Lipitor PO 40 mg QPM ANAND Administration Dextrose 0 gm 07/10/18 00:50 Insta-Glucose PO DIRECTED PRN Dextrose/Water 0 gm 07/10/18 00:50 IVP DIRECTED PRN Dimethicone/Zinc Oxide 0 gm 07/10/18 00:49 Abdirashid Protect Cream TP PRN PRN Duloxetine HCl 30 mg 07/10/18 08:30 07/13/18 08:26 Cymbalta PO 30 mg DAILY ANAND Administration Enoxaparin Sodium 40 mg 07/12/18 08:30 07/13/18 08:26 Lovenox SC 40 mg DAILY ANAND Administration IV Miscellaneous Supplies 1 each 07/09/18 23:45 IV DIRECTED ANAND Ibuprofen 600 mg 07/11/18 20:00 07/13/18 08:26 Motrin PO 600 mg TID ANAND Administration Insulin Aspart 0 units 07/10/18 08:00 07/13/18 12:15 Novolog Flexpen SC 1 unit 0800,1200,1700 ANAND Administration Protocol Insulin Glargine 10 units 07/10/18 22:00 07/12/18 22:17 Lantus Solostar SC 10 units HS ANAND Administration Melatonin 3 mg 07/10/18 00:53 PO HS PRN Nicotine 21 mg 07/11/18 08:30 07/13/18 08:26 Nicoderm Cq TD 21 mg DAILY ANAND Administration Pantoprazole Sodium 40 mg 07/12/18 07:30 07/13/18 08:26 Protonix PO 40 mg DAILY@0730 ANAND Administration Acetaminophen 2 each 07/11/18 16:06 07/12/18 08:17 Extended Release PO 2 each 650mg Q8H PRN PRN Administration Sodium Chloride 0 ml 07/09/18 23:38 07/12/18 08:15 Saline Flush 10 Ml Syringe IVP 10 ml PRN PRN Administration Topiramate 100 mg 07/10/18 08:30 07/13/18 08:26 Topamax PO 100 mg BID ANAND Administration Tramadol HCl 50 mg 07/11/18 19:22 07/12/18 22:17 Ultram PO 50 mg Q6H PRN PRN Administration Humulin R Regular U-100 Insuln 20 unit SUBCUT BID 06/21/18 albuterol sulfate HFA 90 mcg/actuation aerosol inhaler 2 puff INHALATION QID PRN #8.5 gm 06/29/18 atorvastatin 40 mg tablet 40 mg PO QPM #30 tab 06/29/18 blood sugar diagnostic strips #100 each 06/29/18 duloxetine 30 mg capsule,delayed release 30 mg PO DAILY #30 cap 06/29/18 lancets #50 each 06/29/18 sitagliptin 25 mg tablet 25 mg PO DAILY #30 tab 06/29/18 topiramate 100 mg tablet 100 mg PO BID #60 tab 06/29/18 METHODS: A 21 channel digitized electroencephalogram was performed in the [facility] Med/Surg Floor or ICU. The 10/20 international system of electrode placement was used and bipolar and referential electrode montages were recorded. In addition to EEG the patient was monitored for EKG and lateral/vertical eye movements. Activation procedures of photic stimulation and hyperventilation were performed if applicable. Video was used during activation procedures and during events where applicable. The duration of the recording was 30 minutes. DESCRIPTION OF EEG: The patient was noted to be awake only during the recording. During maximal wakefulness a 9-Hz posterior background rhythm was present which was well-modulated, symmetrical, reactive to eye opening, and of moderate voltage. With eye opening the background activity changed to a low voltage mixture of alpha, beta, and occasional theta range frequencies. Faster frequencies were present in the bilateral anterior head regions. There was a normal anterior-posterior voltage gradient. No drowsiness or stage II sleep was recorded. Activating Procedures: Photic stimulation was performed which produced a symmetrical posterior driving response at various flash frequencies. Hyperventilation was performed with mild effort and produced no physiological slowing of the background. EKG: EKG revealed normal sinus rhythm. INTERPRETATION: This EEG is normal during the awake state as well as during photic stimulation and hyperventilation. PRIOR EEG: none CLINICAL CORRELATION: No focal regions of cerebral dysfunction or epileptiform activity was present. No sleep was recorded during the study which reduces the sensitivity of the exam. If seizure remains a part of the differential, consider a repeat sleep-deprived EEG or overnight ambulatory EEG. Clinical correlation is advised. Adri Dennis MD
--- NOTE | 2018-07-13 14:06 | PDOC.CMPRO ---
- If Service Date Differs Date of service: 07/13/18 Time of Service: 14:06 Care Management Progress Note S/O: Beverly is lying in bed this morning talking with his SO Tia when this screen writer visits, he is pleasant and receptive to discussion. Db to have an EEG today. Discussed DC plans which remain unchanged at this time. Beverly will go to [facility] at time of DC or the [facility] depending on the timing of his discharge. A:47 year old male admitted with loss of consciousness reported by significant other. P: Anticipate discharge with a Zio patch per provider. He will be discharged when medically ready and will continue with psychosocial support in the community for housing resources. Patient and his spouse are familiar with how to apply for services, and how to obtain emergency housing. CM to continue to provide support to patient ongoing discharge planning. CM to follow-up with community connections on Thursday to verify support services.
--- NOTE | 2018-07-13 14:10 | CMPROGNOTE_ITS ---
- If Service Date Differs Date of service: 07/13/18 Time of Service: 14:06 Care Management Progress Note S/O: Beverly is lying in bed this morning talking with his SO Tia when this specification writer visits, he is pleasant and receptive to discussion. Db to have an EEG today. Discussed DC plans which remain unchanged at this time. Beverly will go to [facility] at time of DC or the [facility] depending on the timing of his discharge. A:47 year old male admitted with loss of consciousness reported by significant other. P: Anticipate discharge with a Zio patch per provider. He will be discharged when medically ready and will continue with psychosocial support in the community for housing resources. Patient and his spouse are familiar with how to apply for services, and how to obtain emergency housing. CM to continue to provide support to patient ongoing discharge planning. CM to follow-up with community connections on Thursday to verify support services.
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
--- NOTE | 2018-07-13 14:29 | PDOC.CMDIS ---
- If Service Date Differs Date of service: 07/13/18 Time of Service: 14:29 LACE Index Scoring Tool - Questions: Length of Stay (in days): 3 Acuity (Admit via E.D.?): Yes Comorbidities: Diabetes w/o Complication, Chronic Pulmonary Disease E.D. Visits: 2 - Answers: Total Score: 11 Risk of Readmission: High Risk Care Management Discharge Reason for Hospitalization: Loss of Consciousness Discharge Plan: Beverly will DC to economic services today to discuss housing options. Beverly has previously been residing at a formerly [facility] in [place], as well as utilizing the [facility]. Beverly will transport via private vehicle with his SO Tia. Patient/Family Education Needs: Review DC instructions, any limitations, and discuss 'Ask me Three'
--- NOTE | 2018-07-13 14:33 | CMDISCH_ITS ---
- If Service Date Differs Date of service: 07/13/18 Time of Service: 14:29 LACE Index Scoring Tool - Questions: Length of Stay (in days): 3 Acuity (Admit via E.D.?): Yes Comorbidities: Diabetes w/o Complication, Chronic Pulmonary Disease E.D. Visits: 2 - Answers: Total Score: 11 Risk of Readmission: High Risk Care Management Discharge Reason for Hospitalization: Loss of Consciousness Discharge Plan: Beverly will DC to economic services today to discuss housing options. Beverly has previously been residing at a [facility] in [place], as well as utilizing the [facility]. Beverly will transport via private vehicle with his SO Tia. Patient/Family Education Needs: Review DC instructions, any limitations, and discuss 'Ask me Three'
== END 2018-07-13 15:20 | disposition home or self-care (01) | DRG 81 ==
LOC: ER 07-10 01:07 → MS 07-10 01:53
PROVIDERS: Admitting Provider General Practice; Emergency Provider Emergency Medicine; Visit Provider Internal Medicine
DX: R40.20 Unspecified coma (principal); R56.1 Post traumatic seizures; E11.42 Type 2 diabetes mellitus with diabetic polyneuropathy; R55 Syncope and collapse; Z79.4 Long term (current) use of insulin; J44.9 Chronic obstructive pulmonary disease, unspecified; F17.210 Nicotine dependence, cigarettes, uncomplicated; M79.7 Fibromyalgia; F41.8 Other specified anxiety disorders; Z87.820 Personal history of traumatic brain injury; Z59.0 Homelessness; K21.9 Gastro-esophageal reflux disease without esophagitis; I34.0 Nonrheumatic mitral (valve) insufficiency
CPT/HCPCS: 36415; 80048; 80053; 80307; 93005; 96360; 96361; 99222; 99232; 99239; 99285; J1650; 70450; 70551; 71046; 80320; 81003; 81015; 83036; 83735; 84484; 85025; 85049; 93010; 93306; 93880; 95816; 99219; G0378